=== PATIENT | male | born 1940 | race Caucasian/White ===

== ENCOUNTER → 2017-12-07 07:23 | Outpatient (CLI) | payer MEDICARE, OTHER, SELFPAY ==
[2017-12-07 08:22] LABS: Hemoglobin A1c 9.9 % (4.2-6.3)
== END ==
PROVIDERS: Family Provider Family Medicine; PCP Family Medicine; Visit Provider Family Medicine
DX: E11.9 Type 2 diabetes mellitus without complications (principal)
CPT/HCPCS: 36415; 83036

== ENCOUNTER → 2018-02-18 09:43 | Outpatient (CLI) | payer MEDICARE, OTHER, SELFPAY ==
--- NOTE | 2018-02-18 09:43 | DT_ITS ---
This patient was seen during an EMR downtime February 18, 2018 - February 25, 2018. This patient may have a combination of paper and electronic documentation or all paper documentation. All documentation is viewable within the e-chart portion of [facility] for each patient visit.
--- NOTE | 2018-02-18 14:19 | MRI_ITS ---
STUDY: MRI RIGHT SHOULDER REASON FOR EXAM: Male, 77 years old. Rotator cuff tear TECHNIQUE: Standardized fat and water weighted pulse sequences were obtained in all 3 orthogonal planes. COMPARISON: None. FINDINGS: There is massive full-thickness rotator cuff tear involving the infraspinatus and supraspinatus tendons which are retracted towards the glenohumeral joint (image 7, 9, 11, 15/22 coronal T2 fat sat, 14/22 sagittal T2). There is uncovering of the humeral head which is high riding and articulating with the undersurface of the acromion. There is a small amount of fluid in the subacromial subdeltoid bursa and glenohumeral joint. There is marked atrophy of the supraspinatus musculature and moderate to marked atrophy of the supraspinatus musculature (image 2/22 sagittal T2). There is rupture of the intra-articular long biceps tendon (image 14/22 coronal T2 fat sat). There is extensive loss of articular cartilage of the glenohumeral joint with subchondral cyst formation and mild osteophytosis (image 13/24 axial proton density fat-sat). There is degenerative tearing at the glenoid labrum (image 10/22 coronal T2 fat sat, 14/24 axial proton density fat sat). There is partial tearing with attenuation of the subscapularis tendon insertion (image 12/24 axial proton density fat-sat). There is benign intraosseous lesion at the humeral head which may represent prominent geode. There is evidence of prior rotator cuff repair (image 14/22 coronal T2 fat sat). There are mild degenerative changes at the acromioclavicular joint (image 4/22 axial proton density fat-sat).. Normal visualized coracohumeral and coracoacromial ligaments. Normal quadrilateral space. Normal axillary space. Normal deltoid muscle. Normal trapezius muscle. MRI/Upper Ext Joint Only(Routine) IMPRESSION: Massive full-thickness rotator cuff tear with tendon retraction and muscular atrophy, status post repair, as described above Marked glenohumeral osteoarthritis Degenerative tearing of the glenoid labrum Rupture of the intra-articular long biceps tendon Mild osteoarthritis of the acromioclavicular joint Electronically Signed: Teo Willoughby MD at 9:39 EDT Tel , Service support ,
== END ==
PROVIDERS: Family Provider Family Medicine; PCP Family Medicine; Visit Provider Family Medicine
DX: M75.121 Complete rotator cuff tear or rupture of right shoulder, not specified as traumatic (principal); M19.011 Primary osteoarthritis, right shoulder
CPT/HCPCS: 73221

== ENCOUNTER → 2018-03-27 09:04 | Outpatient (CLI) | payer MEDICARE, OTHER, SELFPAY ==
[2018-03-27 10:11] LABS: Absolute Lymphocyte Count 2.27 X10^3/ul (0.83-4.51); Basophil# 0.03 X10^3/uL; Basophil% 0.4 % (0-1); Eosinophil# 0.18 X10^3/uL; Eosinophils% 2.2 % (0-5); Hematocrit 45.3 % (40-54); Hemoglobin 15.6 g/dl (13.0-16.5); Lymphocyte # 2.27 X10^3/ul (4.0); Lymphocyte % 27.2 % (19-41); Mean Corp Hgb Conc 34.4 g/gl (32-36); Mean Corpuscular Hgb 28.6 pg (27.0-32.0); Mean Platelet Vol. 10.2 fl (6.2-12.0); Monocyte% 9.6 % (0-10); Neutrophil # 5.04 X10^3/uL (2.7-7.7); Neutrophil % 60.1 % (47-70); Platelet Count 270 K/mm3 (150-450); RBC Distribution Width SD 39.9 fl (35.1-43.9); Red Blood Count 5.46 M/mm3 (4.6-6.2); White Blood Count 8.4 K/mm3 (4.4-11.0)
[2018-03-27 10:13] LABS: POSITIVE COUNT NO; POSITIVE DIFFERENTIAL NO; POSITIVE MORPHOLOGY NO
[2018-03-27 10:21] LABS: Microalbumin,Random Urine 95.2 mg/L (NO RANGE EST.); Microalbumin:Creatinine Ratio 49.3 mg/g CRE (<30 mg/g CRE)
[2018-03-27 10:35] LABS: ALB/GLOB Ratio 1.1 RATIO (0.9-2.4); AST(SGOT) 11 U/L (15-37); Alanine Aminotransfer ALT/SGPT 27 U/L (16-61); Albumin, Serum 3.8 g/dL (3.2-5.0); Alkaline Phosphatase 89 U/L (45-117); Anion Gap 9 (5-15); BUN 24 mg/dL (7-18); BUN/Creat Ratio 25.9 RATIO (10-20); Calcium,Total 9.2 mg/dL (8.5-10.1); Chloride 103 mmol/L (98-107); Creatinine, Serum 0.93 mg/dL (0.70-1.30); EST Glomerular Filtration Rate 84 mL/min (>60); Est Glom Filt Rate - Afr Amer 102 mL/min (>60); Globulin 3.6 g/dL (2.2-4.2); Glucose 207 mg/dL (74-106); Potassium 4.6 mmol/L (3.5-5.1); Protein, Total 7.4 g/dL (6.4-8.2); Sodium Level 138 mmol/L (136-145)
[2018-03-27 10:40] LABS: Cholesterol 146 mg/dL (200); High Density Lipoprotein 55 mg/dL; Triglycerides 76 mg/dL; Very Low Density Lipoprotein 15 mg/dL (5-40)
[2018-03-27 10:42] LABS: Hemoglobin A1c 8.8 % (4.2-6.3)
== END ==
PROVIDERS: Family Provider Family Medicine; PCP Family Medicine; Visit Provider Nurse Practitioner
DX: E11.9 Type 2 diabetes mellitus without complications (principal); I10 Essential (primary) hypertension
CPT/HCPCS: 36415; 80053; 80061; 82043; 82570; 83036; 85025

== ENCOUNTER → 2018-04-02 08:22 | Outpatient (CLI) | payer MEDICARE, OTHER, SELFPAY ==
--- NOTE | 2018-04-02 08:27 | RAD_ITS ---
STUDY: X-RAY - RIGHT SHOULDER REASON FOR EXAM: Right shoulder pain, limited range of motion. TECHNIQUE: 3 view(s) of the shoulder. COMPARISON: None. FINDINGS: There is glenohumeral arthrosis with joint space narrowing and subchondral cystic change. There is no demonstrated substantial acromioclavicular arthrosis. Normal acromion. There are postoperative changes of the greater tuberosity and a suspected prominent cyst in the greater tuberosity. There is narrowing of the acromiohumeral distance. Normal visualized pulmonary apex. RAD/Shoulder min 2 Views IMPRESSION: Glenohumeral arthrosis. Electronically Signed: Kin Lara MD at 10:30 EDT Tel , Service support ,
== END ==
PROVIDERS: Family Provider Family Medicine; PCP Family Medicine; Visit Provider Orthopaedic Surgery
DX: M25.511 Pain in right shoulder (principal)
CPT/HCPCS: 73030

== ENCOUNTER → 2018-06-20 10:18 | Outpatient (CLI) | payer MEDICARE, OTHER, SELFPAY ==
[2018-06-20 10:58] LABS: Hemoglobin A1c 8.8 % (4.2-6.3)
== END ==
PROVIDERS: Family Provider Family Medicine; PCP Family Medicine; Visit Provider Family Medicine
DX: E11.9 Type 2 diabetes mellitus without complications (principal)
CPT/HCPCS: 36415; 83036

== ENCOUNTER → 2018-07-08 10:55 | Outpatient (CLI) | payer MEDICARE, OTHER, SELFPAY ==
--- NOTE | 2018-07-08 10:56 | US_ITS ---
STUDY: SCROTUM ULTRASOUND REASON FOR EXAM: Male, 77 years old. Left testicular pain. TECHNIQUE: Ultrasound evaluation of the scrotum was performed with color Doppler and static sosa-scale imaging. COMPARISON: None. FINDINGS: RIGHT TESTICLE The right testis measures 44 x 28 x 20 mm with homogeneous and normal echotexture and normal vascularity. The right epididymal head measures 9 x 8 x 9 mm with normal echotexture and vascularity. There is a small hydrocele. There is no varicocele. LEFT TESTICLE The left testis measures 48 x 31 x 26 mm, with homogeneous and normal echotexture and normal vascularity. The left epididymal head measures 9 x 12 x 8 mm, normal echotexture and vascularity. There is a moderate left hydrocele. There is no left varicocele. The left inguinal canal was scanned with and without Valsalva with no evidence of hernia. US/Testicular with Arterial Flow IMPRESSION: Moderate left, small right hydrocele. No varicocele. Normal appearance of the testes. There is no evidence of testicular mass, epididymal orchitis, or torsion. There is no sonographic evidence of left inguinal hernia. Electronically Signed: Horacio Piper, at 15:14 EDT Tel , Service support ,
== END ==
PROVIDERS: Family Provider Family Medicine; PCP Family Medicine; Referring Provider Family Medicine; Visit Provider Family Medicine
DX: N50.812 Left testicular pain (principal)
CPT/HCPCS: 76870; 93976

== ENCOUNTER → 2018-10-23 09:58 | Outpatient (CLI) | payer MEDICARE, OTHER, SELFPAY ==
[2018-09-26 08:52] VITALS: BMI 36.0
[2018-10-23 10:45] LABS: ALB/GLOB Ratio 1.1 RATIO (0.9-2.4); AST(SGOT) 12 U/L (15-37); Alanine Aminotransfer ALT/SGPT 27 U/L (16-61); Albumin, Serum 3.9 g/dL (3.2-5.0); Alkaline Phosphatase 86 U/L (45-117); Anion Gap 7 (5-15); BUN 20 mg/dL (7-18); BUN/Creat Ratio 20.9 RATIO (10-20); Calcium,Total 8.9 mg/dL (8.5-10.1); Chloride 104 mmol/L (98-107); Creatinine, Serum 0.96 mg/dL (0.70-1.30); EST Glomerular Filtration Rate 81 mL/min (>60); Est Glom Filt Rate - Afr Amer 98 mL/min (>60); Globulin 3.5 g/dL (2.2-4.2); Glucose 230 mg/dL (74-106); Potassium 4.5 mmol/L (3.5-5.1); Protein, Total 7.4 g/dL (6.4-8.2); Sodium Level 140 mmol/L (136-145)
[2018-10-23 10:49] LABS: Hemoglobin A1c 8.6 % (4.2-6.3)
[2018-10-23 10:55] LABS: Microalbumin:Creatinine Ratio 318.3 mg/g CRE (<30 mg/g CRE)
== END ==
PROVIDERS: Family Provider Family Medicine; PCP Family Medicine; Referring Provider Nurse Practitioner; Visit Provider Nurse Practitioner
DX: E11.9 Type 2 diabetes mellitus without complications (principal)
CPT/HCPCS: 36415; 80053; 82043; 82570; 83036

== ENCOUNTER → 2018-12-18 10:08 | Outpatient (CLI) | payer MEDICARE, OTHER, SELFPAY ==
[2018-12-18 09:27] VITALS: BMI 36.0
[2018-12-18 13:10] LABS: Hemoglobin A1c 8.7 % (4.2-6.3)
== END ==
PROVIDERS: Family Provider Family Medicine; PCP Family Medicine; Visit Provider Family Medicine
DX: E11.9 Type 2 diabetes mellitus without complications (principal)
CPT/HCPCS: 36415; 83036

== ENCOUNTER → 2019-03-26 | Outpatient (CLI) | payer MEDICARE, OTHER, SELFPAY ==
[2019-03-26 08:34] VITALS: BMI 36.0
[2019-03-26 13:14] LABS: ALB/GLOB Ratio 0.9 RATIO (0.9-2.4); AST(SGOT) 16 U/L (15-37); Alanine Aminotransfer ALT/SGPT 32 U/L (16-61); Albumin, Serum 3.5 g/dL (3.2-5.0); Alkaline Phosphatase 93 U/L (45-117); Anion Gap 8 (5-15); BUN 20 mg/dL (7-18); Chloride 101 mmol/L (98-107); Cholesterol 150 mg/dL (200); Creatinine, Serum 0.91 mg/dL (0.70-1.30); EST Glomerular Filtration Rate 86 mL/min (>60); Est Glom Filt Rate - Afr Amer 104 mL/min (>60); Globulin 3.7 g/dL (2.2-4.2); Glucose 248 mg/dL (74-106); High Density Lipoprotein 56 mg/dL; Potassium 4.7 mmol/L (3.5-5.1); Protein, Total 7.2 g/dL (6.4-8.2); Sodium Level 138 mmol/L (136-145); Triglycerides 114 mg/dL; Very Low Density Lipoprotein 23 mg/dL (5-40)
[2019-03-26 13:24] LABS: Microalbumin:Creatinine Ratio 90.6 mg/g CRE (<30 mg/g CRE)
== END | disposition home or self-care (01) ==
LOC: BIMLAB 09:01
PROVIDERS: Family Provider Family Medicine; PCP Family Medicine; Visit Provider Family Medicine
DX: E11.9 Type 2 diabetes mellitus without complications (principal); E78.5 Hyperlipidemia, unspecified
CPT/HCPCS: 36415; 80053; 80061; 82043; 82570

== ENCOUNTER → 2020-01-22 07:51 | Outpatient (CLI) | payer MEDICARE, OTHER, SELFPAY ==
[2020-01-07 08:41] VITALS: BMI 36.0
[2020-01-22 08:44] LABS: ALB/GLOB Ratio 0.9 RATIO (0.9-2.4); AST(SGOT) 10 U/L (15-37); Alanine Aminotransfer ALT/SGPT 27 U/L (16-61); Albumin, Serum 3.6 g/dL (3.2-5.0); Alkaline Phosphatase 78 U/L (45-117); Anion Gap 5 (5-15); BUN 29 mg/dL (7-18); BUN/Creat Ratio 28.7 RATIO (10-20); Calcium,Total 9.3 mg/dL (8.5-10.1); Chloride 101 mmol/L (98-107); Cholesterol 165 mg/dL (200); Creatinine, Serum 1.01 mg/dL (0.70-1.30); EST Glomerular Filtration Rate 76 mL/min (>60); Est Glom Filt Rate - Afr Amer 92 mL/min (>60); Globulin 3.8 g/dL (2.2-4.2); Glucose 213 mg/dL (74-106); High Density Lipoprotein 54 mg/dL; Potassium 4.5 mmol/L (3.5-5.1); Protein, Total 7.4 g/dL (6.4-8.2); Sodium Level 136 mmol/L (136-145); Triglycerides 97 mg/dL; Very Low Density Lipoprotein 19 mg/dL (5-40)
== END ==
PROVIDERS: PCP Family Medicine; Referring Provider Family Medicine; Visit Provider Family Medicine
DX: I10 Essential (primary) hypertension (principal); E11.9 Type 2 diabetes mellitus without complications
CPT/HCPCS: 36415; 80053; 80061

== ENCOUNTER 2020-11-15 08:17 | Outpatient (RCR) | payer MEDICARE, OTHER, SELFPAY ==
[2020-09-01 13:50] VITALS: BMI 35.9
== END 2020-11-15 23:59 ==
LOC: IMMUN 08:17
PROVIDERS: PCP Family Medicine; Visit Provider Family Medicine
DX: Z23 Encounter for immunization (principal)
CPT/HCPCS: 0011A; 0012A

== ENCOUNTER 2021-03-03 13:00 | Outpatient (RCR) | payer MEDICARE, OTHER, SELFPAY ==
[2021-01-18 08:12] VITALS: BMI 36.3
--- NOTE | 2021-01-31 14:39 | HP.PTEVAL_ITS ---
Patient's Visit Information AMAURY BURNETT is a 80 year old M referred to Physical Therapy by MONICA MEEKS with a diagnosis of vertigo and dizziness and giddiness. Date of Evaluation: 01/31/21 Physical Therapist: RENETTA Nunez - Visit Plan Frequency: 2x /Week Duration: 3 Weeks Plan: Check next visit R and L Hallpike next visit and treat appropriately. Give HEP if needed. Check VOR and see if any deficitis present. - Subjective Pt reports that he has been doing some AM exercises leaning to the R and L X 10 times sitting on the couch and the vertigo goes away for part of the day... He does it every morning. He started getting vertigo about a year ago and just one morning he could not get to the bathroom. If he lays down straight back down he will gets dizzy. It starts before his head hits the pillow. He can roll to e ither side without any issue but if he does his sitting exercise he can feel worse going to the R side. He did not fall to cause this issue. He has fallen once and missed the bottom step. His report that he loses his balance easy and uneven ground is challenging. He has no trouble in the dark in the middle of the night. - Objective + R Hallpike for torsional nystagmus that lasted 15 seconds..... treated from this position by Kati Elliott. Repeated R Hallpike a second time and it was negative for nystagmus. He had a hint of dizziness when we took him back in the hallpike but it did not last any length of time. Educated the pt on BPPV and to not do any prolonged looking down tonight. Also that he may feel off for the rest of the day. - Goals Goal 1:: I HEP Goal Time Frame: 2 Weeks Goal 2:: Check for VOR deficits Goal Time Frame: 4-6 Weeks Goal 3:: Subjective no dizziness when he goes to lay down at night Goal Time Frame: 2-4 Weeks - Rehabilitation Potential Rehabilitation Potential: Good - Anticipated Interventions Patient/Client Instruction: Educate patient on: Condition, Plan of Care For the Purpose of:: To improve muscle performance and motor function, To improve ability to perform ADL's, To increase tolerance to activity/condition/position, To improve performance and independence with ADL's, To improve ability of physical actions for home/community/work/leisure, To improve gait and locomotor functions, To improve endurance, To improve balance, To improve safety with gait Therapeutic Exercise to Include: Strength training, Endurance training, Balance training, Coordination, Body mechanics, Postural training, Flexibilty training, Gait and locomotor training, Neuromotor development, Active ROM, Scapular Strength/Stabilization For the Purpose of:: To improve muscle performance and motor function, To improve ability to perform ADL's, To increase tolerance to activity/condition/position, To improve performance and independence with ADL's, To decrease level of supervision to perform tasks, To improve ability of phys ical actions for home/community/work/leisure, To improve gait and locomotor functions, To improve endurance, To improve balance, To improve safety with gait Functional Training to Include: Gait training For the Purpose of:: To improve muscle performance and motor function, To improve gait and locomotor functions, To improve balance, To improve safety with gait Manual Therapy Techniques to Include: Other Comment: canalith repositioning For the Purpose of:: To improve ability to perform ADL's, To increase tolerance to activity/condition/position, To improve gait and locomotor functions, To improve balance, To improve safety with gait Thank you for the opportunity to evaluate your patient. For Medicare and Medicare HMO plans, please review the plan of care and approve it. It will need to be FAXED BACK to us at [phone] for Medicare purposes. For Medicare only, by signing this I certify the plan of care. Please let me know if there are questions or concerns regarding this plan of care. Physician Signature: Date:
--- NOTE | 2021-02-24 12:51 | HP.PTREVAL ---
MONICA MEEKS, It has been my pleasure to treat AMAURY BURNETT over the last 4 visits for vertigo and dizziness and giddiness. Please see the progress note below for an update on the physical therapy plan of care! Subjective: One day got dizzy in cafeteria. Needed to hold on and was lasted a minute or so. Otherwise is cautious but has felt pretty good. No other dizzyness. Non compliant with HEP. Objective/Function: BP today 189/[address] l[address] doctor regarding this as they have been checking it at home. - L hallpike koko. + R hallpike for 2 sec u ptorsional nystagmus, treated with Mita. Walked out well and felt OK. This is still positive positionally and being stubborn. Noncompliance with EHP has been an ssue but agreeable to continue as long as positive positional tests. Plan Plan: f/u one week to ensure positinal gone, Then check balance and activitiy for need for training. Appropriate to continue weekly up to 3 weeks with fair prognosis. Goals Goal 1:: I HEP Goal Time Frame: 2 Weeks Goal Progress: noncompliant Goal 2:: Check for VOR deficits Goal Time Frame: 4-6 Weeks Goal 3:: Subjective no dizziness when he goes to lay down at night Goal Time Frame: 2-4 Weeks Goal Progress: Progressing Anticipated Interventions Patient/Client Instruction: Educate patient on: Condition, Plan of Care For the Purpose of:: To improve muscle performance and motor function, To improve ability to perform ADL's, To increase tolerance to activity/condition/position, To improve performance and independence with ADL's, To improve ability of physical actions for home/community/work/leisure, To improve gait and locomotor functions, To improve endurance, To improve balance, To improve safety with gait Therapeutic Exercise to Include: Strength training, Endurance training, Balance training, Coordination, Body mechanics, Postural training, Flexibilty training, Gait and locomotor training, Neuromotor development, Active ROM, Scapular Strength/Stabilization For the Purpose of:: To improve muscle performance and motor function, To improve ability to perform ADL's, To increase tolerance to activity/condition/position, To improve performance and independence with ADL's, To decrease level of supervision to perform tasks, To improve ability of physical actions for home/community/work/leisure, To improve gait and locomotor functions, To improve endurance, To improve balance, To improve safety with gait Functional Training to Include: Gait training For the Purpose of:: To improve muscle performance and motor function, To improve gait and locomotor functions, To improve balance, To improve safety with gait Manual Therapy Techniques to Include: Other Comment: canalith repositioning For the Purpose of:: To improve ability to perform ADL's, To increase tolerance to activity/condition/position, To improve gait and locomotor functions, To improve balance, To improve safety with gait Please do not hesitate to contact me at [phone] by phone or if you have questions or concerns regarding this new plan of care! Sincerely, Tonny Rain, EFREMT, OCS, CSCS
--- NOTE | 2021-03-03 13:28 | HP.PTDCSUM ---
It has been my pleasure to treat AMAURY BURNETT referred by MONICA MEEKS, with the diagnosis of vertigo and dizziness and giddiness for a total of 5 visit(s). Discharge Date: 03/03/21 Please see the following information for a summary of their discharge status. Subjective: Done his exercises and spins the first repetition to the right. Walking on uneven surface can still be iffy. No falls. To Dr. Betancourt March 22. Got water pill put back in for BP form doctor. % Improvement: 100 Objective/Function: Walking confidentally and exitting chair easily today vs previous sessions. VOR improving quality and not making dizzy horizontally today for 60 seconds. - L HD, quick nystagmus with R HD but trasnsient. FGA is low end of normal for age. Pt doing very well. Goal 1:: I HEP Goal Progress: Goal Met Goal 2:: Check for VOR deficits Goal Progress: Goal Met Goal 3:: Subjective no dizziness when he goes to lay down at night Goal Progress: Goal Met Plan: d/c, f/u doctor in 2 weeks, call if dizzyness returns. If there are questions or concerns regarding this patient's physical therapy, please feel free to call me at [phone]. Thank you for the referral of this patient. Sincerely, Tonny Rain, DPT, OCS, CSCS
== END 2021-03-03 13:35 | disposition home or self-care (01) ==
LOC: PT 13:00
PROVIDERS: PCP Family Medicine
DX: R42 Dizziness and giddiness (principal)
CPT/HCPCS: 97161; 97164; 97530

== ENCOUNTER 2021-10-05 14:50 | Outpatient (CLI) | payer MEDICARE, OTHER, SELFPAY ==
[2021-10-05 16:46] LABS: AST(SGOT) 17 U/L (15-37); Alanine Aminotransfer ALT/SGPT 27 U/L (16-61); Albumin, Serum 3.6 g/dL (3.2-5.0); Alkaline Phosphatase 92 U/L (45-117); Anion Gap 7 (5-15); BUN 26 mg/dL (7-18); BUN/Creat Ratio 23.4 RATIO (10-20); Calcium,Total 9.3 mg/dL (8.5-10.1); Chloride 102 mmol/L (98-107); Creatinine, Serum 1.11 mg/dL (0.70-1.30); EST Glomerular Filtration Rate 68 mL/min (>60); Est Glom Filt Rate - Afr Amer 82 mL/min (>60); Globulin 3.6 g/dL (2.2-4.2); Glucose 344 mg/dL (74-106); Potassium 4.9 mmol/L (3.5-5.1); Protein, Total 7.2 g/dL (6.4-8.2); Sodium Level 136 mmol/L (136-145)
== END 2021-10-05 23:59 | disposition short-term general hospital (02) ==
LOC: BIMLAB 14:52
PROVIDERS: PCP Family Medicine; Referring Provider Family Medicine; Visit Provider Family Medicine
DX: E11.9 Type 2 diabetes mellitus without complications (principal)
CPT/HCPCS: 36415; 80053

== ENCOUNTER → 2022-12-28 | Outpatient (CLI) | payer MEDICARE, OTHER, SELFPAY ==
[2022-12-28 12:17] LABS: Mean Corp Hgb Conc 33.3 g/dL (32-36); Mean Corpuscular Hgb 28.6 pg (27.0-32.0); Mean Corpuscular Volume 85.9 fL (80-94); Mean Platelet Vol. 10.3 fl (6.2-12.0); Platelet Count 296 K/mm3 (150-450); RBC Distribution Width CV 12.8 % (11.6-14.6); RBC Distribution Width SD 39.8 fl (35.1-43.9); Red Blood Count 5.24 M/mm3 (4.6-6.2); White Blood Count 9.7 K/mm3 (4.4-11.0)
[2022-12-28 13:03] LABS: ALB/GLOB Ratio 0.9 RATIO (0.9-2.4); AST(SGOT) 12 U/L (15-37); Alanine Aminotransfer ALT/SGPT 24 U/L (16-61); Albumin, Serum 3.5 g/dL (3.2-5.0); Alkaline Phosphatase 82 U/L (45-117); Anion Gap 5 (5-15); BUN 22 mg/dL (7-18); BUN/Creat Ratio 20.4 RATIO (10-20); Calcium,Total 9.6 mg/dL (8.5-10.1); Chloride 103 mmol/L (98-107); Cholesterol 166 mg/dL (200); Creatinine, Serum 1.08 mg/dL (0.70-1.30); EST Glomerular Filtration Rate 70 mL/min (>60); Est Glom Filt Rate - Afr Amer 85 mL/min (>60); Globulin 3.8 g/dL (2.2-4.2); Glucose 250 mg/dL (74-106); High Density Lipoprotein 53 mg/dL; Potassium 4.6 mmol/L (3.5-5.1); Protein, Total 7.3 g/dL (6.4-8.2); Sodium Level 135 mmol/L (136-145); T4 Free Direct 1.19 ng/dL (0.76-1.46); Thyroid Stim Hormone (TSH) 0.74 uIU/mL (0.358-3.74); Triglycerides 162 mg/dL; Very Low Density Lipoprotein 32 mg/dL (5-40)
== END | disposition home or self-care (01) ==
LOC: BIMLAB 10:28
PROVIDERS: PCP Family Medicine; Referring Provider Family Medicine; Visit Provider Family Medicine
DX: E11.9 Type 2 diabetes mellitus without complications (principal)
CPT/HCPCS: 36415; 80053; 80061; 84439; 84443; 85027

== ENCOUNTER 2023-09-21 19:08 | Emergency (ER) | payer MEDICARE, OTHER, SELFPAY ==
[2023-09-21] VITALS (23 sets, daily range): BP systolic 92–188; BP diastolic 62–79; PULSE 49–56; RESP 13–25; TEMP 36.6; O2SAT 96–100; BMI 35.1
--- NOTE | 2023-09-21 19:35 | RAD_ITS ---
RAD/Chest 1 View (Portable) IMPRESSION: 1. No evidence of acute cardiopulmonary process Electronically Signed: Horacio Cox MD at 19:55 EST ,
[2023-09-21 19:39] LABS: Absolute Lymphocyte Count 2.88 X10^3/uL (0.83-4.51); Absolute Neutrophil Count 5.7 X10^3/uL (2.0-7.7); Basophil# 0.08 X10^3/uL; Basophil% 0.8 % (0-1); Eosinophil# 0.18 X10^3/uL; Eosinophils% 1.8 % (0-5); Hematocrit 46.2 % (40-54); Hemoglobin 15.1 g/dL (13.0-16.5); Lymphocyte # 2.88 X10^3/ul (0.83-4.51); Lymphocyte % 29.6 % (19-41); Mean Corp Hgb Conc 32.7 g/dL (32-36); Mean Corpuscular Hgb 28.3 pg (27.0-32.0); Mean Corpuscular Volume 86.7 fL (80-94); Mean Platelet Vol. 9.5 fl (6.2-12.0); Monocyte# 0.86 X10^3/uL; Monocyte% 8.8 % (0-10); NRBC Flagged by Analyzer 0 % (0-5); Neutrophil # 5.66 X10^3/uL (2.7-7.7); Neutrophil % 58.3 % (47-70); Platelet Count 273 K/mm3 (150-450); RBC Distribution Width CV 12.3 % (11.6-14.6); RBC Distribution Width SD 39.2 fl (35.1-43.9); Red Blood Count 5.33 M/mm3 (4.6-6.2); White Blood Count 9.7 K/mm3 (4.4-11.0)
--- OUTSIDE RECORDS SUMMARY | 2023-09-21 19:53 | XMS RPT_ITS | CCD ---
Author Name Unknown Address [address] [place] [address] Organization [facility] Care Team Providers Care [employer] Name Role Phone Teo Shaw Unavailable [phone] Medications Completed/Discontinued Medications Medication Drug Class(es) Dates Sig (Normalized) Sig (Original) METFORMIN HCL TABS (2 sources) Biguanide Start: 08-06-2017 METFORMIN HCL TABS as directed METFORMIN HCL TABS [id number] Teo SEWELL Problems Problem Classification Problem Date Documented Da te Episodic/Chronic Sprains and strains (2 sources) Strain of muscle, fascia and tendon of the posterior muscle group at thigh level, right thigh, initial encounter; Translations: [Strain of muscle, fascia and tendon of the posterior muscle group at thigh level, right thigh, initial encounter] Onset: 08-06-2017 08-06-2017 Episodic Results Test Name Value Interpretation Reference Range Facil ity Vital Signs Date Time Vital Sign Value Performing Clinician Faci lity 08-06-2017 15:17-0500 BMI (Body Mass Index) 36.64 kg/m2 Teo SEWELL [facility] Work Phone: 08-06-2017 15:17-0500 Body Temperature 98.2 [degF] Teo SEWELL [facility] Work Phone: 08-06-2017 15:17-0500 BP Diastolic 78 mm[Hg] Teo SEWELL [facility] Work Phone: 08-06-2017 15:17-0500 BP Systolic 122 mm[Hg] Teo SEWELL [facility] Work Phone: 08-06-2017 15:17-0500 Height 172.72 cm Teo SEWELL [facility] Work Phone: 08-06-2017 15:17-0500 Pulse (Heart Rate) 61 /min Teo SEWELL [facility] Work Phone: 08-06-2017 15:17-0500 Respiratory Rate 15 /min Teo SEWELL [facility] Work Phone: 08-06-2017 15:17-0500 Weight 109.32 kg Teo SEWELL [facility] Work Phone: Plan of Treatment Date Care Activity Detail Author Start: 08-06-2017 End: 08-06-2017 Appointment Appointment [facility] Work Phone: [facility] Work Phone: Additional Source Comments FOR RECORDS PERTAINING TO PATIENTS WHO ARE OR HAVE BEEN ENROLLED IN A CHEMICAL DEPENDENCY/SUBSTANCEABUSE PROGRAM, SOME INFORMATION MAY BE OMITTED. This clinical summary was aggregated from multiple sources. Caution should be exercised in using it in the provision of clinical care. This summary normalizes information from multiple sources, and as a consequence, information in this document may materially change the coding, format and clinical context of patient data. In addition, data may be omitted in some cases. CLINICAL DECISIONS SHOULD BE BASED ON THE PRIMARY CLINICAL RECORDS. [email or web address]. provides no warranty or guarantee of the accuracy or completeness of information in this document.
[2023-09-21 20:01] LABS: Anion Gap 5 (5-15); BUN 30 mg/dL (7-18); BUN/Creat Ratio 29.1 RATIO (10-20); Calcium,Total 9.6 mg/dL (8.5-10.1); Chloride 102 mmol/L (98-107); Creatinine, Serum 1.03 mg/dL (0.70-1.30); EST Glomerular Filtration Rate 74 mL/min (>60); Est Glom Filt Rate - Afr Amer 89 mL/min (>60); Estimated Creatinine Clearance 54.42 ml/min; Glucose 233 mg/dL (74-106); Potassium 4.5 mmol/L (3.5-5.1); Sodium Level 135 mmol/L (136-145); Troponin-I HS (w/2H Reflex) 18 pg/mL (3.0-78.0)
--- NOTE | 2023-09-21 20:03 | EDS_ITS ---
HPI History of Present Illness Chief Complaint: Chest Pain Informant: patient and spouse/S.O. Narrative Narrative: Patient presents with what he calls acid reflux. He has a long history of acid reflux. He was on Prevacid that worked great for him. Because of an insurance change, he was switched to pantoprazole. This just happened days ago. Ever since he has been on pantoprazole he has been getting burning sensation up his chest and sometimes a sour taste in his throat. He does state that it seems to get worse after he eats. No specific food bothers it just any foods. He denies shortness of breath nausea vomiting or diaphoresis. He states it just usually last for a minute and then goes away. He does not feel sick in any way when it occurs. Patient states he has never had heart problems. He does not have exertional problems. He still works a fair amount. No family history of heart disease. Never been a smoker. He does have diabetes and cholesterol. He supposedly on lisinopril for the diabetes but not for high blood pressure. But his blood pressure is up a little bit on its initial check here. [facility] Medical History Balanitis History of rotator cuff tear Hyperlipemia Hypertension Type 2 diabetes mellitus no medical history Home Medications blood sugar diagnostic (Contour Next Test Strips) #20 ea 12/06/17 [History Last Taken Unknown] Kenalog 40 mg/mL suspension for injection (triamcinolone acetonide) 80 mg (2 mL) intra-articular ONCE #2 mL 09/26/18 [Clinic Last Taken Unknown] Kenalog 40 mg/mL suspension for injection (triamcinolone acetonide) 40 mg intra- articular ONCE #1 mL 09/01/20 [Clinic Last Taken Unknown] blood sugar diagnostic (Blood Glucose Test strips) #10 ea 03/24/21 [Rx Last Taken Unknown] blood sugar diagnostic (Accu-Chek SmartView Test Strips) #100 ea 03/31/21 [Rx Last Taken Unknown] Kenalog 40 mg/mL suspension for injection (triamcinolone acetonide) 40 mg intra- articular ONCE #1 mL 06/22/21 [Clinic Last Taken Unknown] lisinopril 40 mg tablet 40 mg PO QDAY #90 tabs 03/26/23 [Rx Last Taken Unknown] glimepiride 4 mg tablet 4 mg PO .COMPLEX #180 tabs 05/23/23 [Rx Last Taken Unknown] metformin 500 mg tablet See Rx Instructions PO BID e11.9 #450 tabs 09/14/23 [Rx Last Taken Unknown] pantoprazole 40 mg tablet,delayed release 40 mg PO DAILY #30 tabs 09/14/23 [Rx Last Taken Unknown] memantine 10 mg tablet (Namenda) 10 mg PO QPM 1 month #30 tabs 09/21/23 [Rx Last Taken Unknown] Allergy/AdvReac Type Severity Reaction Status Date / Time amoxicillin [From [facility]] Allergy Unknown Hives Verified 09/21/23 19:10 clarithromycin [From [facility]] Allergy Unknown Hives Verified 09/21/23 19:10 lansoprazole [From [facility]] Allergy Unknown Hives Verified 09/21/23 19:10 Family History Grandmother Diabetes Grandfather Diabetes Mother Cancer esophagus Surgical History roto rooter S/P left rotator cuff repair Social History Smoking Status: Never smoker alcohol intake: current alcohol intake frequency: holidays/special occasions only what type of physical activity do you participate in: none ROS ROS ED ROS Narrative A complete review of systems was performed and is negative except as documented in the history of present illness. Some specific details below. Constitutional: No recent fevers or chills. EYE: No discharge, visual complaints, or pain. ENT: He does get some acid taste in his mouth with many of these episodes but not all of them. CV: See history of present illness. Respiratory: Denies any shortness of breath. GI: No abdominal pain. No nausea vomiting at any time and no diarrhea. No blood in stool. : No frequency dysuria or hematuria. Musculoskeletal: No recent trauma. No pains. No swelling. Skin: No rash. Nondiaphoretic. Neuro: No weakness or numbness. Endocrine: No polyuria or polydipsia. EXAM Physical Exam Narrative Exam Narrative: CONSTITUTIONAL: Patient is nontoxic in appearance. The patient looks comfortable. Work of breathing looks normal. HEENT: No notable trauma. Mucous membranes moist. No erythema. No mass noted. EYES: No conjunctival injection. No proptosis. NECK:No JVD. No stridor. CARDIOVASCULAR: Regular rate. Regular rhythm. No notable murmur. No JVD. Tones are not muffled. Pulses are normal. RESPIRATORY: No respiratory distress. Breathing is unlabored. No wheezes. No rhonchi. No rales. No pain with a deep breath. No chest wall tenderness. GASTROINTESTINAL: Not distended. Bowel sounds are normal. No tenderness including none at the epigastric area. But he is not having symptoms now either. No right upper quadrant pain.. No guarding. No rebound. No palpable mass. No bruit is heard. GENITOURINARY: No tenderness over the bladder. No CVA tenderness. MUSCULOSKELETAL: Atraumatic. No tenderness asymmetry or significant edema. Asymmetry. No distended veins. NEUROLOGICAL: Patient is alert and appropriate. No focal deficit noted. SKIN: No noted rashes. No diaphoresis. PSYCHIATRIC: Patient is calm. Mood is appropriate. Const Vital Signs: 09/21/23 19:09 09/21/23 19:12 09/21/23 20:59 Temperature 97.8 F Temperature Source Temporal Pulse Rate 56 L 52 L Respiratory Rate 16 19 H Blood Pressure 188/74 H 131/71 H Blood Pressure Mean 112 91 Pulse Ox 100 97 Oxygen Delivery Method Room Air Room Air Room Air MDM MDM MDM Narrative Medical decision making narrative: My independent interpretation of the patient seen future test x-ray shows some chronic changes but no acute process. Final reading is similar. CBC is normal. Patient's electrolytes show minimally low sodium. Slight elevation in the BUN. Glucose is up at 233. He is on meds for this. Patient's first troponin is negative at 18. Patient's second troponin is negative and decreasing at 17. This is not uncommon patient of 83. Although he has some risk factors for heart disease. His story is consistent with reflux. His history is consistent with the symptoms starting when he changed his long-term reflux medicine. I am not sure why Prevacid was so much more effective than pantoprazole. But he states it worked better. He is going to buy [id number] Prevacid. He states he is not staying in the hospital. This is why we did a delta even though he is had some days of symptoms. I wanted further time and verification of no acute issues. But he was planning to go home regardless. I think it is appropriate he goes home and follows up. Lab Data Attestation: I reviewed the patient's lab results. Labs: Laboratory Results - last 24 hr 09/21/23 09/21/23 19:32 21:56 WBC 9.7 RBC 5.33 Hgb 15.1 Hct 46.2 MCV 86.7 MCH 28.3 MCHC 32.7 RDW Std Deviation 39.2 RDW Coeff of Reinaldo 12.3 Plt Count 273 MPV 9.5 Immature Gran % (Auto) 0.700 Neut % (Auto) 58.3 Lymph % (Auto) 29.6 [place] % (Auto) 8.8 Eos % (Auto) 1.8 Baso % (Auto) 0.8 Absolute Neuts (auto) 5.7 Absolute Lymphs (auto) 2.88 Nucleated RBC % 0 Sodium 135 L Potassium 4.5 Chloride 102 Carbon Dioxide 28.0 Anion Gap 5 BUN 30 H Creatinine 1.03 Estim Creat Clear Calc 54.42 Est GFR (MDRD) Af Amer 89 Est GFR (MDRD) Non-Af 74 BUN/Creatinine Ratio 29.1 H Glucose 233 H Calcium 9.6 Troponin I High Sens 18 17 Radiography Diagnostic Testing: Clinical Impression(s) from Imaging Studies Chest X-Ray 09/21/23 19:35 IMPRESSION: 1. No evidence of acute cardiopulmonary process Electronically Signed: Horacio Cox MD at 19:55 EST , EKG Initial EKG: Comments: My independent interpretation of the patient's EKG shows sinus rhythm with mild bradycardic rate at 56. Occasional PAC. No ventricular ectopy. No acute ST elevation or depression. ND interval, QRS duration and QTc are normal. Discharge Plan Triage Chief Complaint: Chest Pain ED Provider: Jordan Vogel Dx/Rx/DC Orders Clinical Impression: Chronic gastroesophageal reflux disease Instructions: ED GERD (Adult) Prescriptions: No Action (DME) blood sugar diagnostic [Contour Next Test Strips] strip See Dose Instructions .ROUTE .MEDSUPPLY Qty: 20 Rx Instructions: As directed triamcinolone acetonide [Kenalog] 40 mg/mL suspension 80 mg INTRAARTIC ONCE Qty: 2 0RF triamcinolone acetonide [Kenalog] 40 mg/mL suspension 40 mg INTRAARTIC ONCE Qty: 1 0RF triamcinolone acetonide [Kenalog] 40 mg/mL suspension 40 mg intra-articular ONCE Qty: 1 0RF (DME) Blood Glucose Test Strip See Rx Instructions .ROUTE .MEDSUPPLY Qty: 10 0RF Rx Instructions: Accu Check- smart view use to test blood sugar 3 times a day DX Diabetes (DME) Accu-Chek SmartView Test Strip Strip See Rx Instructions .ROUTE .MEDSUPPLY Qty: 100 3RF Rx Instructions: Check Blood glucose once daily for non-insulin dependent type 2 BM lisinopril 40 mg tablet 40 mg PO QDAY Qty: 90 2RF glimepiride 4 mg tablet 4 mg PO .COMPLEX Qty: 180 3RF Rx Instructions: 4 mg PO twice daily pantoprazole 40 mg tablet,delayed release (DR/EC) 40 mg PO DAILY Qty: 30 3RF metformin 500 mg tablet See Rx Instructions PO BID Qty: 450 0RF Dose Instruction: 2 tabs q am, 1 tab with lunch and 2 tabs q pm PO TID; Rx Instructions: orally twice a day; 2 tabs q am, 1 tab with lunch memantine [Namenda] 10 mg tablet 10 mg PO QPM 30 Days Qty: 30 6RF Primary Care Provider: Evan Betancourt Referrals: Evan Betancourt, DO [Primary Care Provider] - 3-5 Days Disposition Disposition: Home, Self Care
[2023-09-21 21:36] LABS: Reflex Troponin-HS? (from REC) Y
[2023-09-21 22:26] LABS: Troponin-I HS 17 pg/mL (3.0-78.0)
== END 2023-09-21 23:01 | disposition home or self-care (01) ==
PROVIDERS: Emergency Provider Emergency Medicine; PCP Family Medicine; Visit Provider Emergency Medicine
DX: K21.9 Gastro-esophageal reflux disease without esophagitis (principal); E11.9 Type 2 diabetes mellitus without complications; E78.5 Hyperlipidemia, unspecified; I10 Essential (primary) hypertension; Z79.899 Other long term (current) drug therapy; Z79.84 Long term (current) use of oral hypoglycemic drugs
CPT/HCPCS: 71045; 80048; 84484; 85025; 93005; 99284

== ENCOUNTER → 2024-07-09 | Outpatient (CLI) | payer MEDICARE, OTHER, SELFPAY ==
[2024-07-09 13:27] LABS: ALB/GLOB Ratio 0.9 RATIO (0.9-2.4); AST(SGOT) 11 U/L (15-37); Alanine Aminotransfer ALT/SGPT 23 U/L (16-61); Albumin, Serum 3.7 g/dL (3.2-5.0); Alkaline Phosphatase 83 U/L (45-117); Anion Gap 5 (5-15); BUN 38 mg/dL (7-18); BUN/Creat Ratio 29.2 RATIO (10-20); Calcium,Total 9.9 mg/dL (8.5-10.1); Chloride 103 mmol/L (98-107); Cholesterol 251 mg/dL (200); EST Glomerular Filtration Rate 56 mL/min (>60); Est Glom Filt Rate - Afr Amer 68 mL/min (>60); Globulin 3.9 g/dL (2.2-4.2); Glucose 221 mg/dL (74-106); High Density Lipoprotein 55 mg/dL; Potassium 4.7 mmol/L (3.5-5.1); Protein, Total 7.6 g/dL (6.4-8.2); Sodium Level 134 mmol/L (136-145); Triglycerides 237 mg/dL; Very Low Density Lipoprotein 47 mg/dL (5-40)
== END | disposition home or self-care (01) ==
LOC: BIMLAB 11:12
PROVIDERS: PCP Family Medicine; Referring Provider Family Medicine; Visit Provider Family Medicine
DX: G30.0 Alzheimer's disease with early onset (principal); F02.A0 Dementia in other diseases classified elsewhere, mild, without behavioral disturbance, psychotic disturbance, mood disturbance, and anxiety; E11.9 Type 2 diabetes mellitus without complications
CPT/HCPCS: 36415; 80053; 80061

== ENCOUNTER → 2025-07-22 | Outpatient (CLI) | payer MEDICARE, OTHER, SELFPAY ==
[2025-07-22 12:51] LABS: Creatinine, Urine (random) 54.20 mg/dL (39.00-259.00); Microalbumin,Random Urine 141.0 mg/L (<20 mg/L)
[2025-07-22 13:09] LABS: AST(SGOT) 16 U/L (<=37); Alanine Aminotransfer ALT/SGPT 14 U/L (<=46); Albumin, Serum 4.1 g/dL (3.4-4.8); Alkaline Phosphatase 81 U/L (40-129); Anion Gap 11 (5-15); BUN 34 mg/dL (4-19); BUN/Creat Ratio 33.1 RATIO (10-20); Calcium,Total 9.8 mg/dL (7.6-11.0); Carbon Dioxide 25.9 mmol/L (21.0-32.0); Chloride 103 mmol/L (98-108); Cholesterol 233 mg/dL (<=200); Globulin 3.2 g/dL (2.2-4.2); Glucose 91 mg/dL (70-99); Low Density Lipoprotein Calc. 150 mg/dL; Potassium 4.9 mmol/L (3.3-5.1); Triglycerides 184 mg/dL; Very Low Density Lipoprotein 37 mg/dL (5-40); cholesterol:hdl ratio screen 4.72
== END | disposition home or self-care (01) ==
LOC: LAB 11:39
PROVIDERS: PCP Family Medicine; Referring Provider Family Medicine; Visit Provider Family Medicine
DX: E11.9 Type 2 diabetes mellitus without complications (principal)
CPT/HCPCS: 36415; 80053; 80061; 82043; 82570